=== PATIENT | male | born 1945 | race Caucasian/White ===

== ENCOUNTER 2016-06-15 19:40 | Observation (INO) | payer OTHER ==
[~2016-06-15] VITALS: Ht 168.9 cm; Wt 100.1 kg
[~2016-06-15 19:40] MED LIST: KEFLEX500 MG PO; QUINAPRIL HCL40 MG PO
[2016-06-15 20:11] LABS: HEMATOCRIT 46.8 % (38.0-50.0); MCH 30.3 PG (29.0-34.0); MCHC 34.6 G/DL (30.0-36.0); MCV 87.6 FL (86-99); MEAN PLAT.VOLUME 9.6 uM^3 (9.0-12.4); PLATELET COUNT 266 K/uL (156-360); RBC DIS.WIDTH-CV 13.4 % (11.8-14.6); RBC DIS.WIDTH-SD 43.3 % (39-53); RED BLOOD COUNT 5.34 M/uL (4.00-5.50); WHITE BLOOD COUNT 6.7 K/uL (4.1-10.2)
[2016-06-15] MEDS ORDERED: AMLODIPINE BESYL5 MG PO (20:16)
[2016-06-15] MEDS ORDERED: MONTELUKAST SOD10 MG PO (20:17)
[2016-06-15 20:36] LABS: CHLORIDE 108 mEq/L (99-109); POTASSIUM 3.8 mEq/L (3.7-5.4); SODIUM 138 mEq/L (136-147)
[2016-06-15 20:37] LABS: GLUCOSE 132 mg/dL (70-99)
[2016-06-15 20:39] LABS: ANION GAP 11 MEQ/L (2-14)
[2016-06-15 20:41] LABS: GFR ESTIMATE (CALCULATED) > 59 mL/min/
[2016-06-15 20:42] LABS: UREA NITROGEN (BUN) 18 mg/dL (9-23)
[2016-06-15 20:47] LABS: TROP-I INTERPRETATION NEGATIVE; TROPONIN-I < 0.01 ng/mL (0.0-0.30)
[2016-06-15] MEDS ORDERED: VENTOLIN HFA18 GM IH (21:27)
[2016-06-15] MEDS ORDERED: PRESERVISION A1 EAC2 PO (21:29)
[2016-06-16 00:58] VITALS: BP 130/77
[2016-06-16 03:18] LABS: TROP-I INTERPRETATION NEGATIVE; TROPONIN-I < 0.01 ng/mL (0.0-0.30)
[2016-06-16 03:45] VITALS: BP 120/66
[2016-06-16 05:13] LABS: MCH 29.8 PG (29.0-34.0); MCHC 33.6 G/DL (30.0-36.0); MCV 88.9 FL (86-99); MEAN PLAT.VOLUME 9.7 uM^3 (9.0-12.4); PLATELET COUNT 232 K/uL (156-360); RBC DIS.WIDTH-CV 13.7 % (11.8-14.6); RBC DIS.WIDTH-SD 44.4 % (39-53); RED BLOOD COUNT 5.06 M/uL (4.00-5.50)
[2016-06-16 05:38] LABS: ALKALINE PHOSPHATASE 52 IU/L (3-129); ANION GAP 8 MEQ/L (2-14); CHLORIDE 108 MEQ/L (99-109); GFR ESTIMATE (CALCULATED) > 59 mL/min/; POTASSIUM 4.2 MEQ/L (3.7-5.4); SAMPLE HEMOLYSIS CHECK 0; SAMPLE ICTERIC CHECK 0; SAMPLE LIPEMIA CHECK 0; SODIUM 138 MEQ/L (136-147); TOTAL BILIRUBIN 0.6 MG/DL (0.0-1.0); UREA NITROGEN (BUN) 16 mg/dL (9-23)
[2016-06-16 05:40] LABS: GLUCOSE 93 mg/dL (70-99)
[2016-06-16 08:29] VITALS: BP 129/74
[2016-06-16 08:55] LABS: Estimated Average Glucose 123 mg/dL (70-123); HEMOGLOBIN A1c (GLYCOHEMOGLOB) 5.9 % HGB (Below 5.7)
[2016-06-16 09:17] LABS: TROP-I INTERPRETATION NEGATIVE; TROPONIN-I < 0.01 ng/mL (0.0-0.30)
[2016-06-16] MEDS ORDERED: DILTIAZEM 24HR120 MG PO (09:53)
== END 2016-06-16 11:06 | disposition home or self-care (01) ==
LOC: EME 19:40 → EDOF 23:08 → 5WEST 23:08
PROVIDERS: Internal Medicine
DX: I47.1 Supraventricular tachycardia (principal); I10 Essential (primary) hypertension; N40.0 Benign prostatic hyperplasia without lower urinary tract symptoms; J45.909 Unspecified asthma, uncomplicated; R73.9 Hyperglycemia, unspecified
CPT/HCPCS: 71020; 80048; 80053; 83036; 84443; 84484; 85027; 93005; 99202; 99281; 99285; G0378; J1644; J3475; J7030